=== PATIENT | female | born 1960 | race Caucasian/White ===

== ENCOUNTER → 2017-12-01 10:35 | Outpatient (CLI) | payer SELFPAY ==
--- NOTE | 2017-12-01 10:50 | US_ITS ---
STUDY: THYROID ULTRASOUND REASON FOR EXAM: Female, 57 years old. Thyroid nodule TECHNIQUE: Ultrasound evaluation of the thyroid was performed with real-time and static cool-scale imaging. COMPARISON: None. FINDINGS: RIGHT LOBE: The right lobe of the thyroid gland measures 5.8 x 2.2 x 2.2 cm. There is a heterogeneous echotexture. Their are 2 nodules in the right lobe of the thyroid. There is a 1.2 x 1.0 x 0.6 cm solid and cystic nodule superiorly. There is a 1.1 x 1.1 x 0.7 cm solid nodule inferiorly. LEFT LOBE: The left lobe was surgically removed. ISTHMUS: The isthmus measures 0.3 cm. There are no nodules identified within the isthmus.. The regional lymph nodes are normal. US/Thyroid IMPRESSION: 2 nodules in the right lobe of the thyroid with the largest measuring 1.2 x 1.0 x 0.6 cm. Comparison with prior studies or 6 month follow-up is recommended. Status post left thyroidectomy. Electronically Signed: Jimbo Olivia, at 7:58 EST Tel , Service support ,
== END ==
PROVIDERS: Family Provider Family Medicine; PCP Family Medicine; Visit Provider Family Medicine
DX: E04.1 Nontoxic single thyroid nodule (principal)
CPT/HCPCS: 76536

== ENCOUNTER → 2019-02-15 12:12 | Outpatient (CLI) | payer OTHER, SELFPAY ==
--- NOTE | 2019-02-15 12:24 | RAD_ITS ---
HISTORY: FALL IN OCT. PAIN LOW BACK EXAM/TECHNIQUE: XR Spine Lumbar Min 4 Views: COMPARISON: None. FINDINGS: # of images incl. paperwork: 5 No fracture or dislocation or osseous destruction. Exaggeration of lumbar lordosis. Mild 2 mm degenerative anterolisthesis of L4 and L5. Marked facet degeneration mid and lower lumbar spine. Mild disc degeneration. No acute findings in the soft tissues. RAD/L/S Spine Min 4 Views IMPRESSION: No acute findings. Marked facet degeneration lower lumbar spine. at 0129 Reported and signed by: Luigi Alfaro MD Electronically Signed: Luigi Alfaro, at 1:27 EDT Tel , Service support ,
== END ==
PROVIDERS: Family Provider Family Medicine; PCP Family Medicine; Visit Provider Chiropractor
DX: M54.5 Low back pain (principal)
CPT/HCPCS: 72110

== ENCOUNTER → 2019-09-20 08:57 | Outpatient (CLI) | payer OTHER, SELFPAY ==
--- NOTE | 2019-09-20 09:10 | US_ITS ---
STUDY: THYROID ULTRASOUND REASON FOR EXAM: Female, 59 years old. Thyroid nodule. Left thyroidectomy. TECHNIQUE: Ultrasound evaluation of the thyroid was performed with real-time and static cool-scale imaging. COMPARISON: 11/21/2017. FINDINGS: RIGHT LOBE: The right lobe of the thyroid gland measures 4.9 x 2.4 x 1.9 cm. There is a heterogeneous echotexture. Small solid nodule with hypoechoic rim in the lower pole measuring 1.0 x 1.0 x 0.8 cm. Hypoechoic nodule measuring 1.2 x 1.1 x 0.4 cm in the midportion of the thyroid lobe. LEFT LOBE: Postsurgical absence. ISTHMUS: The isthmus measures 3 mm. US/Thyroid IMPRESSION: 1. Small solid nodule in the caudal aspect of the right thyroid lobe measuring 1.0 x 1.0 x 0.8 cm. 2. Hypoechoic nodule in the midportion of the right thyroid lobe measuring 1.2 x 1.1 x 0.4 cm. 3. No interval change when compared to 12/01/2017. COMMENT: Based on the ultrasound images, the location of the nodules are in the caudal aspect of the right thyroid lobe and in the midportion rather than mid and upper pole as written down by the anesthesiology technologist. The nodule locations are also unchanged when compared to 12/01/2017. Electronically Signed: Bienvenido Becerra MD at 14:35 EST , Service support ,
== END ==
PROVIDERS: Family Provider Internal Medicine; PCP Internal Medicine; Referring Provider Internal Medicine; Visit Provider Internal Medicine
DX: E04.1 Nontoxic single thyroid nodule (principal)
CPT/HCPCS: 76536

== ENCOUNTER → 2020-09-04 09:13 | Outpatient (CLI) | payer OTHER, SELFPAY ==
--- NOTE | 2020-09-04 09:23 | US_ITS ---
HISTORY: RIGHT THYROID NODULES. S/P LT THYROIDECTOMY COMPARISON: 09/20/2019, 12/01/2017 TECHNIQUE: Grayscale and color Doppler sonography of the thyroid gland. FINDINGS: RIGHT LOBE: 5.6 x 1.8 x 2.0 cm LEFT LOBE: Surgically absent ISTHMUS: 3.7 mm No masses seen in the left thyroid bed. Right thyroid lobe is diffusely heterogeneous. Nodule in the right superior thyroid lobe measures 1.1 x 0.6 x 1.0 cm. It is solid, hypoechoic, smoothly marginated, wider than tall without calcification (TIRADS 4, follow-up warranted in 1 year). This is not definitely seen previously. Nodule in the right mid thyroid lobe measures approximately 1.5 x 0.5 x 1.2 cm, previously 1.2 x 0.6 x 1.0 cm on 12/01/2017. It is solid, hypoechoic, smoothly marginated, wider than tall without calcification. (TIRADS 4, consider FNA). Nodule in the inferior right thyroid lobe is solid, predominantly isoechoic, is smoothly marginated, wider than tall without calcification. (TIRADS 3). US/Thyroid IMPRESSION: Multiple right thyroid lobe nodules with an apparent new nodule in the superior thyroid lobe and slight increase in size of nodule in the right mid thyroid lobe. at 0459 Reported and signed by: Leticia Mccarthy MD Electronically Signed: Leticia Mccarthy MD at 4:59 EST Tel , Service support ,
== END ==
PROVIDERS: PCP Internal Medicine; Referring Provider Internal Medicine; Visit Provider Internal Medicine
DX: E04.1 Nontoxic single thyroid nodule (principal)
CPT/HCPCS: 76536

== ENCOUNTER → 2021-05-17 06:26 | Outpatient (CLI) | payer OTHER, SELFPAY ==
--- NOTE | 2021-05-17 06:39 | MRI_ITS ---
STUDY: MRI ABDOMEN WITH AND WITHOUT CONTRAST REASON FOR EXAM: Female, 61 years old. LEFT RENAL MASS f/u to CT abd 05/04/21 TECHNIQUE: An MRI of the abdomen was performed utilizing phase and out of phase axial images followed by axial 2-D fiesta and fat sat T2-weighted images followed by T1 weighted fat sat axial images followed by axial lava images and coronal T1 and fast spoiled gradient-echo images and T2-weighted fat sat images and 2-D fiesta coronal images. Postcontrast lava images were obtained in the axial plane. COMPARISON: Previous CT scan of the abdomen and pelvis obtained on 05/04/2020 FINDINGS: The inferior half of the liver was visualized in on the in phase and out of phase images no evidence of fatty infiltration of the liver was seen. The adrenal glands. Normal. The visualized spleen appears to be normal. The head, body, and tail of the pancreas are normal. The right kidney appears to be normal with no evidence of calyceall calculi, mass, or obstructive uropathy. On the left side there is a heterogeneous mass lesion seen off the lateral aspect of the left kidney measuring 3.75 x 3.61 cm in maximal transverse and AP dimension by 3.4 cm in maximal inferior superior dimension. This mass lesion is not involved the left renal vein and and no extracapsular spread from this hypernephroma is currently seen. The abdominal aorta is normal in its course and distribution. No periaortic lymphadenopathy is seen. MRI/MRI Abd WITH and W/O Contrast IMPRESSION: A 3.75 x 3.61 x 3.4 cm left renal hypernephroma is identified involving the midportion of the left kidney. Electronically Signed: Uzair Snell DO at 13:09 EDT Tel , Service support ,
== END ==
PROVIDERS: PCP Internal Medicine; Referring Provider Internal Medicine; Visit Provider Internal Medicine
DX: N28.89 Other specified disorders of kidney and ureter (principal)
CPT/HCPCS: 74183; A9575

== ENCOUNTER → 2021-08-24 09:23 | Outpatient (CLI) | payer OTHER, SELFPAY ==
--- NOTE | 2021-08-24 09:25 | US_ITS ---
STUDY: THYROID ULTRASOUND REASON FOR EXAM: Female, 61 years old. GOITER TECHNIQUE: Ultrasound evaluation of the thyroid was performed with real-time and static cool-scale imaging. COMPARISON: 09/04/2020 FINDINGS: RIGHT LOBE: The right lobe of the thyroid gland measures 5.6 x 2.3 x 1.8 cm. There is a heterogeneous echotexture. Nodule 1: No change in the 8 x 5 x 7 mm solid hypoechoic wider than tall ill-defined marginated nodule with no echogenic foci (TR 4) in the superior right lobe consistent with an adenoma. Nodule 2: No change in the 13 x 14 x 6 mm solid hypoechoic wider than tall smoothly marginated nodule with no echogenic foci (TR 4) in the anterior right lobe and follow-up ultrasound is recommended in 1 year. Nodule 3: No change in the 11 x 10 x 12 mm solid hypoechoic wider than tall smoothly marginated nodule with no echogenic foci (TR 4) in the inferior right lobe and follow-up ultrasound is recommended one year. LEFT LOBE: Status post left lobectomy. ISTHMUS: The isthmus measures 4 mm thick. . The regional lymph nodes are normal. US/Thyroid IMPRESSION: No change in multiple thyroid nodules. Follow-up ultrasound is recommended one-year period Electronically Signed: Jeremias Washington MD at 16:57 EST Tel , Service support ,
== END ==
PROVIDERS: PCP Internal Medicine; Referring Provider Otolaryngology Otolaryngic Allergy; Visit Provider Otolaryngology Otolaryngic Allergy
DX: E04.0 Nontoxic diffuse goiter (principal)
CPT/HCPCS: 76536

== ENCOUNTER → 2021-10-11 16:58 | Outpatient (CLI) | payer OTHER, SELFPAY ==
--- NOTE | 2021-10-11 17:30 | MRI_ITS ---
STUDY: MRI ABDOMEN WITH AND WITHOUT CONTRAST REASON FOR EXAM: Female, 61 years old. COMPARE TO CT FROM OUTSIDE FACILITY PROVIDED LEFT renal CA, LEFT adrenal mass, LEFT flank pain TECHNIQUE: Standardized fat and water weighted pulse sequences were obtained in all 3 orthogonal planes post contrast administration. IV 15ML dOTAREM was administered for the contrast portion of the examination. COMPARISON: None. FINDINGS: The visualized lung bases are unremarkable. The visualized portions of the heart are within normal limits. Normal liver. Normal gallbladder and extrahepatic biliary system. Normal spleen. Normal pancreas. Normal right adrenal gland. 1.4 x 1.1 cm enhancing nodular mass visualized in the left adrenal gland. Normal right kidney. There is an area of signal dropout visualized measuring 3.0 x 3.6 x 3.3 cm seen in the superior lateral left kidney demonstrated on series 7 and 6 images 13 of 38, coronal images demonstrate the same. On correlation with the scattered there are linear areas of increased attenuation visualized at this level or could represent focal blood or surgical clips, findings suggestive of for hemosiderin deposits/blood or post surgery/postoperative changes. These are best delineated on the T2 fiesta axial and coronal images series 3 image 11 and series 11 image 13. 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 Subtle Stranding of the fat planes inferior to the lower pole of the left kidney and ureter measuring 4.3 x 6.3 x 5.2 cm seen on series 6 image 29 and series 4 image 16, linear enhancing band visualized extending inferiorly within this area, on the corresponding CT scan images increased the peritoneal fat visualized at this location, the differential diagnosis would include postoperative changes in the perirenal fat planes or angiomyolipoma, would recommend correlation with the before surgery images and surgical report. Normal visualized stomach. Normal small intestine. Normal colon. The appendix is visualized and appears normal. Normal abdominal aorta. Normal inferior vena cava. Normal retroperitoneum. Normal abdominal wall. Normal osseous structures. MRI/MRI Abd WITH and W/O Contrast IMPRESSION: Heterogeneous fatty area visualized in the upper pole of the left kidney with subtle blood products, differential diagnosis would include an angiomyolipoma or postoperative changes at this location would recommend clinical correlation. A second area of encased dirty fat is visualized along the inferior aspect of the lower pole of the left kidney, this could also represent postoperative changes, mesenteric fat infarction or angiomyolipoma. There is no evidence of irregularity along the cortex and renal parenchyma in the lower pole of the left kidney as was notable on the superior lateral aspect of the upper pole. 1.4 cm enhancing nodularity visualized in the left adrenal gland worrisome for malignancy. Electronically Signed: Uzair Matthews MD at 14:43 EST Tel , Service support ,
== END ==
PROVIDERS: PCP Internal Medicine
DX: C64.2 Malignant neoplasm of left kidney, except renal pelvis (principal); R10.9 Unspecified abdominal pain; E27.8 Other specified disorders of adrenal gland
CPT/HCPCS: 74183; A9575